=== PATIENT | male | born 1960 | race Caucasian/White ===

== ENCOUNTER 2022-09-11 08:50 | Day surgery (SDC) | payer OTHER ==
--- NOTE | 2022-09-08 16:08 | RAD REPORT ---
EXAM DESCRIPTION: RAD - Chest Pa And Lat (2 Views) - 09/08/2022 3:59 pm CLINICAL HISTORY: PREOP Chest pain. COMPARISON: Chest Pa And Lat (2 Views) dated 05/05/2021 TECHNIQUE: PA and lateral views of the chest were obtained. FINDINGS: The lungs are hyperexpanded compatible with COPD. The heart is upper limit of normal in si ze. No fracture or aggressive bony process. IMPRESSION: COPD without acute process identified. The USPSTF recommends annual screening for lung cancer with low-dose CT (LDCT) in adults aged 50 to 8 0 years who have a 20 pack-year smoking history and currently smoke or have quit within the past 15 y ears.
[2022-09-08 16:09] LABS: Absolute Lymphocytes (CBC) 1.5 K/uL (0.7-4.9); Lymphocytes % 29.9 % (15.3-44.8); MCV 88.3 fL (80-100); MPV 6.6 fL (7.6-11.3); RBC Red Blood Cell Count 3.85 M/uL (4.33-5.43)
[2022-09-08 16:21] LABS: Potassium 3.8 mEq/L (3.5-5.1)
[2022-09-11] MEDS ORDERED: Ringers Lactate 1,000 ML IV ONE (09:14)
[2022-09-11] MEDS ORDERED: FENTANYL CITR 100 MCG/2 ML ONE (09:25)
[2022-09-11] MEDS ORDERED: ONDANSETRON 4 MG/2 ML VIAL ONE (09:25)
[2022-09-11] MEDS ORDERED: MIDAZOLAM HCL 2 MG/2 ML INJ ONE (09:25)
[2022-09-11] MEDS ORDERED: dexAMETHasone 4 MG/ML VIAL ONE (09:25)
[2022-09-11] MEDS ORDERED: ROCURONIUM 50 MG/5 ML VIAL IV ONE ×2 (09:25→11:00)
[2022-09-11] MEDS ORDERED: propofoL 200 MG/20 ML VIAL IV ONE (09:25)
[2022-09-11] MEDS ORDERED: NEOSTIGMINE 1 MG/ML -10 ML VIAL ONE (09:26)
[2022-09-11] MEDS ORDERED: GLYCOPYRROLATE 0.2 MG/ML SYR ONE ×2 (09:26→09:27)
[2022-09-11] MEDS ORDERED: LIDOCAINE 2% MPF 5 ML VIAL ONE (09:26)
[2022-09-11] MEDS ORDERED: CIPROFLOXACIN 400mg IV 400 MG/200 ML BAG IV ONE (09:57)
--- NOTE | 2022-09-11 11:29 | P.BOP ---
Preoperative diagnosis: incarcerated tender ventral and umbilical hernias Postoperative diagnosis: same Primary procedure: 1. Laparoscopic repair of ventral and umbilical hernia with mesh Secondary procedure: Ventral 4 cm, umbilical 3 cm Other procedure(s): 2. Laparoscopic lysis of adhesions Estimated blood loss: <10cc Specimen: sac x 2 Findings: mid-inferior ventral and umbilical hernia, intrabdominal adhesions Anesthesia: General Complications: None Implants: ventralight St with echo PS >15cm Transferred to: Recovery Room Condition: Good
--- NOTE | 2022-09-11 12:46 | DS ---
Diagnosis: Ventral and umbilical hernia. Procedure: Laparoscopic repair of ventral and umbilical hernia with mesh. Disposition: Home. Activity: As tolerated. No heavy lifting. Plan: Follow up in my office in 1 week. Call for appointment at [phone]. Abdominal binder while linda og is out of bed. He was then advised about ambulation. Avoid constipation. Medications: Will be called from the office. ANEL/JULITA Voice ID: [id number] Report ID: [id number]
[2022-09-11] MEDS ORDERED: HYDROCODONE/APAP 10/325 TAB ONE (12:58)
--- NOTE | 2022-09-11 13:00 | OP ---
Date of Procedure: 09/11/2022 Surgeon: Charles Gentile MD Preoperative Diagnosis: Incarcerated tender ventral and umbilical hernia. Postoperative Diagnosis: Incarcerated tender ventral and umbilical hernia. Procedure: 1.Laparoscopic repair of ventral and umbilical hernia with mesh. Ventral hernia is about 4 cm. Umb ilical hernia is 3 cm. We repaired them individually, but the mesh underneath to cover both places. 2.As secondary procedure, we did laparoscopic lysis of adhesions. Estimated Blood Loss: Less than 10 mL. Specimen: Hernia sac x2. Findings: Mid inferior ventral hernia and umbilical hernia, each of them separate. There are extens ford adhesions going into the hernia itself that have to be removed with the LigaSure device. There i s also incarceration of omentum trapped that we were able to reduce. Anesthesia: General plus local. Complications: None. Implant: Ventralight ST with Echo Positioning System, 15 cm plus. Indication: This is the case of a male, who comes to us with 2 hernias and 2 areas of tenderness. T he benefits, alternatives, and risks of laparoscopic possible repair of ventral and umbilical hernia with possible mesh fully explained to the patient, which include, but not limited to infection, bleed ing, damage to adjacent structures, anesthesia complication, recurrence, [place], and even . He also understands this may not relieve any symptoms. He might need more than one surgical intervention. He understood, signed a consent. He also understands we may use mesh in that region. Pros and cons of mesh use were discussed with the patient. All the questions answered to his satisfaction. He gav e consent. Areas of concern were marked by me and the patient in the holding room. Procedure In Detail: The patient was brought to the operating room, placed in supine position. Anes thesia was done without complication. Abdominal area was prepped and draped in the usual sterile fas hion. Marcaine 0.5% injected to the area to be incised. First, incision was done in the periumbilic al region. We tried to go through that area first, one of the hernias present and then we addressed the ventral hernia depends on what we see laparoscopically from these defects. At that moment, I pro ceeded to open the hernia sac. Fascial edges were cleaned. Hernia sac was removed. We placed Vicry l #1 inside of the fascia. Leeanna trocar was carefully introduced, that was through this hernia. We reduced the omental content in that region. We were able to put a Leeanna trocar and then put 5 mm t rocars left and right side after obtaining pneumoperitoneum. Then from that area, we were able to lo ok in the midline where we saw just lateral adhesions to the ventral region. The hernia cannot be fi xed until those are taken care of. Those adhesions were holding omentum, trapped, incarcerated into the ventral region, so with the help of LigaSure, we proceeded to slowly remove the lysis of adhesion s making sure we have no bleeding behind. Once we had the adhesion removed, we were able to reduce t he omentum trapped in that area. A significant amount of omentum present, all reduced. Once again, we inspected the omentum and made sure there was no bleeding. After that, we have the fascial edges cleaned since this is just a little bit more cephalad than the umbilical hernia. We made a counter i ncision in that area and that will help us not only to drop the mesh that we decided to place in that area, but also to place some stitches in the friable fashion in that region. Laparoscopically, we m easured a mesh that will cover both spaces and overlap the area about 3-5 cm. At that moment, I proc eeded then to make an incision in the ventral region. The incision was carried down to fascia. Fasc ial edges were cleaned. Hernia sac was removed and then we proceeded to use #1 PDS in a frufdi-ff-nz ght fashion multiple times and the defects are well approximated. Once again, we reinforced this wit h mesh due to the friability of the fascial edges. Once we have that, we proceeded to close the gallo umbilical region, hernia sac, and then after that, put Leeanna through the ventral region. This allow ed me to once again inspect the area, make sure the area of the lysis of adhesions show no bleeding. We decided to use a Ventralight ST with Echo PS 15 cm plus that will cover the defect as described a leoncio. This was placed through the Leeanna trocar. Leeanna was removed. The fascial edges were tied u p except the last one to allow us to keep the pneumoperitoneum. Once we have that, we inflated the b alloon, made sure the mesh covered the area properly. I then secured that mesh anteriorly with Sorba Fix fixation device multiple times. The balloon was deflated, removed from the area. We further cir cumferentially reinforced the mesh anteriorly making sure it was nice and flat and no bowel in betwee n. After that, we injected some local anesthetic, checked the area of the lysis of adhesions. Oment um still viable. So at that moment, we already have a waterproof and air seal. We further tied the stitch on top and slowly deflated pneumoperitoneum under direct visualization. Removed the cameras, removed the trocars, closed the subcutaneous tissue with 3-0 chromic and the skin in a subcuticular f ashion with 3-0 chromic and Steri-Strips on top. The patient tolerated the procedure well. Sponge c ount, instrument counts correct. The patient was sent to recovery in stable condition. ANEL/JULITA Voice ID: [id number] Report ID: [id number]
[2022-09-11 13:18] VITALS: BP 118/70; TEMP 96.9; O2SAT 100
--- NOTE | 2022-09-11 17:17 | EKG ---
Test Date: 2022-09-08 Test Time: 15:46:45 Highway Maintenance Worker: VAHID MEASUREMENT RESULTS: Intervals: Rate: 63 FL: 180 QRSD: 78 QT: 388 QTc: 397 [place]: P: 33 FL: 180 QRS: -21 T: 24 INTERPRETIVE STATEMENTS: Normal sinus rhythm Normal ECG No previous ECG available for comparison Electronically Signed On 09-11-22 17:12:12 CDT by Jamison Allen
== END 2022-09-11 13:20 | disposition home or self-care (01) ==
LOC: PRE 08:50
PROVIDERS: ATTEND Surgery
PROC: 0DNU4ZZ Release Omentum, Percutaneous Endoscopic Approach (ICD-10-PCS; 2022-09-11)
PROC: 0WUF4JZ Supplement Abdominal Wall with Synthetic Substitute, Percutaneous Endoscopic Approach (ICD-10-PCS; principal; 2022-09-11 10:45)
DX: K43.6 Other and unspecified ventral hernia with obstruction, without gangrene (principal); K42.0 Umbilical hernia with obstruction, without gangrene; K43.0 Incisional hernia with obstruction, without gangrene; K66.0 Peritoneal adhesions (postprocedural) (postinfection)
CPT/HCPCS: 93005; 85025; 80048; 36415; 88302; 71046; 49594; 49329; J2704; J1100; J2710; J2001; J2250; J3010; J2405; J0744; J7120

== ENCOUNTER → 2023-04-09 | Day surgery (SDC) | payer OTHER ==
[~2023-04-09] MED LIST: CIPROFLOXACIN 400mg IV 400 MG/200 ML BAG IV ONE; FENTANYL CITR 100 MCG/2 ML ONE; HYDROCODONE/APAP 10/325 TAB ONE; LIDOCAINE 1% MPF 5 ML VIAL ONE; MIDAZOLAM HCL 2 MG/2 ML INJ ONE; ONDANSETRON 4 MG/2 ML VIAL ONE; ROCURONIUM 50 MG/5 ML VIAL IV ONE; Ringers Lactate 1,000 ML IV ONE; SUGAMMADEX SODIUM 200 MG/2 ML VIAL IV ONE; dexAMETHasone 4 MG/ML VIAL ONE; propofoL 200 MG/20 ML VIAL IV ONE
[2023-04-09 08:11] LABS: Absolute Lymphocytes (CBC) 1.1 K/uL (0.7-4.9); Lymphocytes % 35.4 % (15.3-44.8); MCV 86.1 fL (80-100); Platelets 206 thou/uL (152-406); RBC Red Blood Cell Count 3.72 M/uL (4.33-5.43)
--- NOTE | 2023-04-09 08:15 | RAD REPORT ---
EXAM DESCRIPTION: RAD - Chest Pa And Lat (2 Views) - 04/09/2023 8:06 am CLINICAL HISTORY: pre-op Chest pain. COMPARISON: Chest Pa And Lat (2 Views) dated 09/08/2022; Chest Pa And Lat (2 Views) dated 05/05/2021 TECHNIQUE: PA and lateral views of the chest were obtained. FINDINGS: The lungs are hyperexpanded compatible with COPD. The heart is upper limit of normal in si ze. No fracture or aggressive bony process. IMPRESSION: COPD without acute process identified. The USPSTF recommends annual screening for lung cancer with low-dose CT (LDCT) in adults aged 50 to 80 years who have a 20 pack-year smoking history and currently smoke or have quit within the past 15 years.
[2023-04-09 08:20] LABS: Protime INR 1.2
[2023-04-09 08:27] LABS: Albumin 3.2 g/dL (3.4-5.0); Bilirubin Direct 0.3 mg/dL (0-0.2); Bilirubin Indirect, Calculated 0.4 mg/dL (0.2-0.8); Bilirubin Total 0.7 mg/dL (0.2-1.0); Potassium 3.6 mEq/L (3.5-5.1); Protein, Total 6.9 g/dL (6.4-8.2)
--- NOTE | 2023-04-09 10:51 | P.BOP ---
Preoperative diagnosis: acute cholecystitis, symptomatic cholelithiasis Postoperative diagnosis: same Primary procedure: Laparoscopic cholecystectomy Estimated blood loss: <10cc Specimen: gb Findings: as ab Anesthesia: General Complications: None Drain(s): CHIKA drain Transferred to: Recovery Room Condition: Good
[2023-04-09] MEDS: HYDROMORPHONE HCL 1 MG/ML INJ ONE ×2 (11:24→11:30)
--- NOTE | 2023-04-09 11:51 | OP ---
Date of Procedure: 04/09/2023 Surgeon: Charles Gentile MD Preoperative Diagnoses: Acute cholecystitis, symptomatic cholelithiasis, right upper quadrant abdomi nal pain. Postoperative Diagnoses: Acute cholecystitis, symptomatic cholelithiasis, right upper quadrant abdom inal pain. Procedure: Laparoscopic cholecystectomy. Estimated Blood Loss: Less than 20 mL. Specimen: Gallbladder. Findings: Inflamed gallbladder with multiple omental adhesions to it. Gallbladder wall edema presen t. Distended. Complications: None. Drains: CHIKA #10. Indications: This is the case of a 63-year-old patient who comes to us with above diagnoses. Fully explained the benefits, alternatives, and risks of laparoscopic possible open cholecystectomy, which include, but not limited to infection, bleeding, damage to adjacent structures, anesthesia complicati on, recurrence, [place], and even . He also understands this may not relieve the symptoms. He might need more than one surgical intervention. He understood, signed a consent. Description Of Procedure: The patient brought to the operating room, placed in supine position. Ane sthesia was done without complication. Abdominal area was prepped and draped in the usual sterile fa shion. Marcaine 0.5% was injected for local anesthetic followed by sharp incision of the skin in the infraumbilical region. Incision was carried down to fascia. We just have to remember this. The ari giraldo has previous incisions in the periumbilical region, so we are trying to stay away from that are a. Incision was carried down to fascia, which was opened under direct vision. Apparently, the patie nt has this mesh present up to the infraumbilical region. A small SorbaFix was removed. Once we bel ow that area, we placed Vicryl #1 inside of the fascia. Leeanna trocar was carefully introduced. No bleeding was obtained. I placed 3 more trocars, 5 mm each one of it in an epigastric right upper bre drant area under direct visualization. This gallbladder was distended where omental adhesions were c arefully removed. Also showed distention to the point I cannot grab it with a grasper, so we introdu david an Endo needle and then aspirated the gallbladder under direct visualization and then removed the needle under direct visualization. The bile consistency looks like it had been infected before. It is cloudy. Consistent with acute cholecystitis. We put a grasper in that region, removed the needl e under direct visualization, put another grasper in the infundibulum, retracted the gallbladder in t he inferolateral fashion, exposing the triangle of Calot and obtaining critical view. The cystic jean t and cystic artery were clearly isolated freed circumferentially and a connection between those and the gallbladder were clearly identified. I proceeded to ligate those by using at least 3 clips proxi mal, 1 clip distal, ligation in middle. Same was done with the cystic artery. A small little branch of the cystic artery was also ligated using same technique. Hepatic arteries and common bile duct w ere protected at all times. The area was inspected once again. We noticed the area obviously with t his bile after the aspiration we saw on the inflammation. I believe it is better to leave a CHIKA drain . So we will leave a CHIKA drain in the right upper quadrant exiting through 1 of the trocar sites. We take a look at the area of the gallbladder fossa. No bleeding. Clips were intact. No bile leak. No bleeding. At that moment, I proceeded to remove the trocars under direct vision, deflated pneumop eritoneum, closed the fascia with #1 Vicryl, irrigated subcutaneous tissue, closed that with 3-0 raw material planner eduardo and the skin with janeth. Sponge count, instrument counts correct. The patient tolerated the p rocedure well. The patient sent to Recovery in stable condition. Disposition: Home. Condition: Stable. Postop Plan: Keep the area dry for 48 hours, then may shower. CHIKA drain to bulb suction. Record out put every 24 hours. No heavy lifting, no more than 0.3 pounds. Follow up my office in 1 week. Call for appointment [phone]. ANEL/JULITA Voice ID: [id number] Report ID: [id number]
[2023-04-09 14:06] VITALS: BP 144/70; TEMP 97.9; O2SAT 97
--- NOTE | 2023-04-09 16:51 | EKG ---
Test Date: 2023-04-09 Test Time: 09:28:41 Door Closer Mechanic: KATIE MEASUREMENT RESULTS: Intervals: Rate: 59 [place]: 176 QRSD: 82 QT: 412 QTc: 407 [place]: P: 37 [place]: 176 QRS: 2 T: 33 INTERPRETIVE STATEMENTS: Sinus bradycardia Low voltage QRS Borderline ECG Compared to ECG 09/08/2022 15:46:45 Low QRS voltage now present Sinus rhythm no longer present Electronically Signed On 04-09-23 16:50:32 E M ASSEMBLER by Jamison Allen
== END | disposition home or self-care (01) ==
LOC: OR 07:08
PROVIDERS: ATTEND Surgery
PROC: 0FT44ZZ Resection of Gallbladder, Percutaneous Endoscopic Approach (ICD-10-PCS; principal; 2023-04-09 09:00)
DX: K80.12 Calculus of gallbladder with acute and chronic cholecystitis without obstruction (principal); R10.11 Right upper quadrant pain
CPT/HCPCS: 93005; 85025; 80048; 36415; 85610; 80076; 88304; 85730; 83690; 71046; 47562; J2704; J1100; J2001; J2250; J3010 ×2; J1170; J2405; J0744; J7120

== ENCOUNTER 2024-02-08 06:36 | Day surgery (SDC) | payer OTHER ==
[2024-02-05 11:43] LABS: Absolute Basophils 0.1 K/uL (0-0.5); Absolute Eosinophils 0.2 K/uL (0-0.5); Absolute Monocytes 0.4 K/uL (0.1-1.3); Basophils % 1.2 % (0-1.3); Eosinophils % 3.6 % (0-4.4); Hematocrit 35.8 % (39.6-49.0); Hemoglobin 12.1 g/dL (13.6-17.9); Lymphocytes % 22.7 % (15.3-44.8); MCH 30.4 pg (27.0-35.0); MCHC 33.8 g/dL (32.0-36.0); MCV 89.8 fL (80-100); MPV 6.7 fL (7.6-11.3); Neutrophils % 64.5 % (41.7-73.7); Platelets 176 thou/uL (152-406); RBC Red Blood Cell Count 3.98 M/uL (4.33-5.43); Red Cell Distribution Width 13.7 % (12.1-15.2)
[2024-02-05 11:46] LABS: PT Prothrombin Time 15.9 SECONDS (9.4-12.5); PTT, Activated Partial Thromb 33.7 SECONDS (24.3-36.9); Protime INR 1.43
[2024-02-05 11:54] LABS: Anion Gap 7.1 mEq/L (5.0-15.0); Potassium 4.1 mEq/L (3.5-5.1)
--- NOTE | 2024-02-05 11:57 | RAD REPORT ---
EXAMINATION: TWO VIEW CHEST XR CLINICAL INDICATION: pre op TECHNIQUE: 2 views of the chest was performed. COMPARISON: 04/09/23 FINDINGS: The lungs are hyperexpanded suggesting COPD. The heart is normal in size. No displaced fractures evid ent. IMPRESSION: COPD is suspected without acute finding identified. The USPSTF recommends annual screening for lung cancer with low-dose computed tomography (LDCT) in ad ults aged 50 to 80 years who have a 20 pack-year smoking history and currently smoke or have quit within the past 15 years. Screening should be discontinued once a person has not smoked for 15 years or develops a health problem that substantially limits life expectancy or the ability or willingness to have curative lung surgery.
--- NOTE | 2024-02-06 11:47 | EKG ---
Test Date: 2024-02-05 Test Time: 12:28:56 Homicide Detective: VADIM MEASUREMENT RESULTS: Intervals: Rate: 55 FL: 176 QRSD: 82 QT: 410 QTc: 392 [place]: P: 54 [place]: 176 QRS: 17 T: 39 INTERPRETIVE STATEMENTS: Sinus bradycardia Otherwise normal ECG Compared to ECG 04/09/2023 09:28:41 No significant changes Electronically Signed On 02-06-24 11:46:50 LITIGATION SERVICES MANAGER by Mars Gottlieb
[~2024-02-08 06:36] MED LIST changes: -CIPROFLOXACIN 400mg IV 400 MG/200 ML BAG IV ONE; -FENTANYL CITR 100 MCG/2 ML ONE; -HYDROCODONE/APAP 10/325 TAB ONE; -LIDOCAINE 1% MPF 5 ML VIAL ONE; -MIDAZOLAM HCL 2 MG/2 ML INJ ONE; +NA CHLORIDE 0.9% 500 ML ONE; -ONDANSETRON 4 MG/2 ML VIAL ONE; -ROCURONIUM 50 MG/5 ML VIAL IV ONE; -Ringers Lactate 1,000 ML IV ONE; -SUGAMMADEX SODIUM 200 MG/2 ML VIAL IV ONE; -dexAMETHasone 4 MG/ML VIAL ONE; -propofoL 200 MG/20 ML VIAL IV ONE
[2024-02-08] MEDS ORDERED: HEPA 1000U/500MLS 1,000 UNIT/500 ML BAG IV ONE ×2 (06:54→06:56)
[2024-02-08] MEDS ORDERED: LIDOCAINE 1% 20 ML MDV ONE (06:55)
[2024-02-08] MEDS ORDERED: HEPARIN 5000 UNIT/ML 1 ML VIAL ONE (06:55)
[2024-02-08] MEDS ORDERED: HEPARIN 10,000 UNIT/10 ML VIAL IV ONE (06:55)
[2024-02-08] MEDS ORDERED: TICAGRELOR 90 MG TABLET PO ONE (06:55)
[2024-02-08] MEDS ORDERED: CLOPIDOGREL 75 MG TABLET ONE (06:55)
[2024-02-08] MEDS ORDERED: ATROPINE SULF 1 MG/10 ML SYR IV ONE (06:55)
[2024-02-08] MEDS ORDERED: ASPIRIN 325 MG TAB ONE (06:56)
[2024-02-08] MEDS ORDERED: FENTANYL CITR 100 MCG/2 ML ONE (06:57)
[2024-02-08] MEDS ORDERED: MIDAZOLAM HCL 2 MG/2 ML INJ ONE (06:57)
[2024-02-08 08:20] VITALS: TEMP 97.8
--- NOTE | 2024-02-08 09:19 | OP ---
Date of Procedure: 02/08/2024 Surgeon: Mars Gottlieb Procedures Performed: 1.Left heart catheterization. 2.Selective coronary angiogram. Indication For Procedure: Abnormal stress test. Complications: None. Estimated Blood Loss: Less than 50 cc. Access: Right radial, closed by TR band. Sedation Time: 20 minutes with 1 of Versed and 25 fentanyl. Description Of Procedure: After risks, benefits, and alternatives were explained to the patient, pat ient agreed to proceed with procedure and signed informed consent. [facility], prepped and draped in sterile fashion. Time-out was performed. Sedation was administer ed. Next, right radial access was obtained using micropuncture technique. [place] 4 catheter was adva nced over the J-wire to the LV cavity. LVEDP was obtained. Pullback did not show any gradient. Tj e catheter was used for selective angiogram of the left and right coronary systems. At the end of pr ocedure, catheter was removed over a J-wire. Sheath was removed. TR band was applied. Hemostasis w as achieved and patient was moved back to recovery in stable condition. Findings: 1.Left main: Normal. 2.LAD: Normal. 3.Left circ: Normal. 4.RCA: Normal. 5.LVEDP 2 mmHg. Assessment And Plan: 1.Normal coronaries with normal filling pressures. 2.The plan will be to continue medical management. JOEY Voice ID: [id number] Report ID: [id number]
[2024-02-08 09:38] VITALS: O2SAT 98
[2024-02-08 09:53] VITALS: BP 111/60
== END 2024-02-08 10:04 | disposition home or self-care (01) ==
LOC: CCL 06:36
PROVIDERS: ATTEND Internal Medicine Interventional Cardiology
DX: R94.39 Abnormal result of other cardiovascular function study (principal); R07.9 Chest pain, unspecified; I34.0 Nonrheumatic mitral (valve) insufficiency; I65.22 Occlusion and stenosis of left carotid artery; I10 Essential (primary) hypertension; E78.2 Mixed hyperlipidemia; I26.99 Other pulmonary embolism without acute cor pulmonale; Z79.01 Long term (current) use of anticoagulants; Z79.899 Other long term (current) drug therapy; Z88.0 Allergy status to penicillin
CPT/HCPCS: 93005; 85025; 80048; 36415; 85610; 85730; 71046; 93458; 76937; C1893; Q9966; J1644; J2003; J2250; J3010; J7040; 99152; 99153; J0461